=== PATIENT | female | born 1950 | race Caucasian/White ===

== ENCOUNTER 2019-10-04 18:55 | Emergency (ER) | payer MEDICARE, OTHER, SELFPAY ==
[2019-10-04 18:57] VITALS: BP 161/105; PULSE 91; RESP 15; TEMP 36.3; O2SAT 93; BMI 35.8
--- NOTE | 2019-10-04 19:15 | ED.VIS.GEN ---
History of Present Illness Chief Complaint: Lower Extremity Injury Informant: Patient Narrative: Patient presents on post trauma day 3. She states that on Thursday she stepped backwards her foot got caught in between 2 objects and she twisted. She states that she feels discomfort across the proximal knee down the medial aspect. No ecchymosis. She states she was, resting it but today need to do laundry and she found it to be extremely painful to bear weight and to go up the stairs. She is never had any prior injury/surgery to the knee. She is never seen orthopedics. Past Medical History - Allergies and Home Meds Allergies/Adverse Reactions: Allergies No Known Allergies Allergy (Verified 10/04/19 18:55) Primary Care Physician: Nikko Page MD [STAFF PHYSICIAN] - 10-14 Days if not better Review of Systems General: Denies: Chills, Fever, Sweats Eyes: Denies: Visual changes - bilaterally, Diplopia ENT: Denies: Rhinorrhea, Sore throat Cardiovascular: Denies: Chest pain, Palpitations Respiratory: Denies: Dyspnea, Cough, Dyspnea on exertion Gastrointestinal: Denies: Abdominal pain, Nausea, Vomiting, Diarrhea, Melena, Hematochezia Genitourinary: Denies: Dysuria, Hematuria, Frequency Musculoskeletal: Reports: Extremity Pain - See history of present illness. Denies: Back pain Skin: Denies: Rash, Wounds Neurological: Denies: Headache, Weakness, Numbness Physical Exam Vital Signs/Narrative: Vital Signs Temp Pulse Resp BP Pulse Ox 10/04/19 18:57 97.4 F L 91 15 161/105 H 93 Inital Vital Signs reviewed: Yes General: Well nourished, Well developed, No Acute Distress Head: Normocephalic, Atraumatic Eyes: Perrl, EOMI ENT: Moist mucous membranes, No rhinorrhea Neck: Supple, Nontender Cardiovascular: Regular rate, Regular rhythm, No murmurs Respiratory: No distress, CTA bilaterally, Chest nontender Abdomen: Soft, Nontender, Nondistended, Normal bowel sounds Back: Normal Inspection, - - No fibular head tenderness. Extremities: Nontender, No edema Skin: Normal color, No rash Neurological: Alert, Oriented x3, Cranial nerves II-XII grossly intact, Normal Strength, Normal Sensation Psychological: Normal affect, Normal Mood Diagnostic/Tx/Re-eval Clinical Impression(s) from Imaging Studies Knee X-Ray 10/04/19 19:18 IMPRESSION: Degenerative changes. No acute fracture or dislocation. Electronically Signed: Freddy Lopez MD at 19:39 EDT , Service support , - Medical Decision Making Knee films were reviewed by myself as well as the radiologist. I do not see an obvious fracture or joint effusion. Patient will be discharged home with a diagnosis of knee sprain. We did talk about the possibility of being a meniscal injury but given the location of her pain being more superior to the knee I think that this is doubtful. If she is not improved 10 to 14 days she should follow-up return if worsening or concerns. ED Disposition - Plan for ED Patient: Disposition: Home or Assisted Living Diagnosis: Left knee sprain Instructions: ED Sprain Knee Referrals: Nikko Page MD [STAFF PHYSICIAN] - 10-14 Days if not better
--- NOTE | 2019-10-04 19:18 | RAD_ITS ---
STUDY: X-RAY - LEFT KNEE REASON FOR EXAM: Female, 69 years old. TWISTED LEFT KNEE THURSDAY STILL HAVING PAIN TECHNIQUE: 4 view(s) of the knee. COMPARISON: None. FINDINGS: Normal visualized distal femur. Normal visualized proximal tibia and fibula. Normal proximal tibiofibular articulation. Narrowed medial femorotibial compartment. Normal lateral femorotibial compartment. Normal patellofemoral articulation. The soft tissue structures are unremarkable. RAD/Knee 4 or More Views IMPRESSION: Degenerative changes. No acute fracture or dislocation. Electronically Signed: Freddy Lopez MD at 19:39 EDT , Service support ,
[2019-10-04 19:47] VITALS: RESP 17
== END 2019-10-04 20:00 | disposition home or self-care (01) ==
PROVIDERS: Emergency Provider Emergency Medicine
DX: S83.92XA Sprain of unspecified site of left knee, initial encounter (principal); X50.1XXA Overexertion from prolonged static or awkward postures, initial encounter
CPT/HCPCS: 73564; 99282

== ENCOUNTER 2020-07-27 09:03 | Outpatient (RCR) | payer MEDICARE, OTHER, SELFPAY ==
[2020-07-27] MEDS: COVID-19 VACC, MRNA(PFIZER)/PF 30 MCG/0.3 ML SYRINGE IM (15:10)
[2020-08-17] MEDS: COVID-19 VACC, MRNA(PFIZER)/PF 30 MCG/0.3 ML SYRINGE IM (15:02)
== END 2020-07-27 23:59 ==
LOC: IMMUN 09:03
PROVIDERS: Visit Provider Family Medicine
DX: Z23 Encounter for immunization (principal)
CPT/HCPCS: 0001A; 0002A; 91300